=== PATIENT | female | born 1950 | race African-American/Black ===

== ENCOUNTER 2017-05-17 13:00 | Inpatient (IN) | payer MEDICARE, OTHER ==
[~2017-05-17] VITALS: Ht 166.4 cm; Wt 98.9 kg
[2017-05-17] MEDS ORDERED: LIRA0.6P2 SQ (13:17)
[2017-05-17] MEDS ORDERED: POTA10TA11 PO (13:17)
[2017-05-17] MEDS ORDERED: THEO200T17 PO (13:17)
[2017-05-17] MEDS ORDERED: CODE60TA PO (13:17)
[2017-05-17] MEDS ORDERED: LOSA25TA12 PO (13:17)
[2017-05-17] MEDS ORDERED: METF500T4 PO (13:17)
[2017-05-17] MEDS ORDERED: AMLO2.5T45 PO (13:17)
[2017-05-17] MEDS ORDERED: SERT25TA74 PO (13:17)
[2017-05-17] MEDS ORDERED: DAPA10TA PO (13:17)
[2017-05-17 17:02] LABS: BASOPHILS % 1.6 % (0.0-2.0); HEMATOCRIT. 38.2 % (36.0-48.0); HEMOGLOBIN. 12.7 g/dL (12.0-16.0); LYMPHOCYTES % 30.8 % (20.0-50.0); MEAN CORPUSCULAR HEMOGLOBIN 25.9 pg (28.0-32.0); MONOCYTES % 5.8 % (2.0-8.0); NEUTROPHILS % 57.8 % (40.0-76.0); PLATELET 364 x1000/uL (130-400); RED BLOOD CELL COUNT 4.89 mill/uL (4.2-5.4); RED CELL DISTRIBUTION WIDTH 18.7 % (11.6-14.6)
[2017-05-17 17:05] LABS: CHLORIDE 105 mEq/L (98-107)
[2017-05-17 17:06] LABS: INR 1.1; PARTIAL THROMBOPLASTIN TIME 25.8 sec (23.4-31.0); PROTHROMBIN TIME 11.6 sec (9.4-11.6)
[2017-05-17 17:15] LABS: CARBON DIOXIDE 29 mEq/L (21-32); TROPONIN I < 0.02 ng/mL (0.00-0.04)
[2017-05-17 17:16] LABS: CREATINE KINASE MB FRACTION 0.5 ng/mL (0.5-3.6)
[2017-05-17] MEDS ORDERED: ENALAPRIL 2.5MG/2ML VIAL 2ML IV ONE (18:00)
[2017-05-17 23:05] VITALS: BP 136/76
[2017-05-17 23:30] VITALS: BP 136/76
[2017-05-18] MEDS ORDERED: INS7030 SUBCUT (00:39)
[2017-05-18] MEDS ORDERED: CLONIDINE 0.1MG TABLET PO PRN (01:15)
[2017-05-18] MEDS ORDERED: NON FORMULARY PATIENT HOME MED EA XX SCH ×2 (01:45)
[2017-05-18 03:23] LABS: CREATINE KINASE 52 IU/L (26-192); CREATINE KINASE MB FRACTION 0.6 ng/mL (0.5-3.6); TROPONIN I < 0.02 ng/mL (0.00-0.04)
[2017-05-18 04:00] VITALS: BP 148/70
[2017-05-18 06:23] LABS: BASOPHILS % 0.4 % (0.0-2.0); EOSINOPHILS % 5.2 % (0.0-5.0); HEMATOCRIT. 34.2 % (36.0-48.0); HEMOGLOBIN. 11.3 g/dL (12.0-16.0); LYMPHOCYTES % 33.4 % (20.0-50.0); MEAN CORPUSCULAR HEMOGLOBIN 25.8 pg (28.0-32.0); MEAN PLATELET VOLUME 8.3 fl (7.4-10.4); PLATELET 316 x1000/uL (130-400); RED BLOOD CELL COUNT 4.38 mill/uL (4.2-5.4); RED CELL DISTRIBUTION WIDTH 18.5 % (11.6-14.6)
[2017-05-18 06:26] LABS: CARBON DIOXIDE 29 mEq/L (21-32); CHLORIDE 108 mEq/L (98-107)
[2017-05-18] MEDS: THEOPHYLLINE ANHYDROUS 80 MG/15 ML 120ML PO SCH ×3 (06:28→18:10)
[2017-05-18 08:00] VITALS: BP_SYST 156; BP_SYST 162; BP_SYST 166; BP_DIAS 73; BP_DIAS 78; BP_DIAS 81
[2017-05-18] MEDS: METFORMIN HCL 500MG TABLET PO SCH ×2 (08:32→18:13)
[2017-05-18] MEDS: POTASSIUM CHLORIDE 10MEQ TABLET SR PO SCH (08:32)
[2017-05-18] MEDS: LOSARTAN POTASSIUM 25 MG TABLET PO SCH (08:33)
[2017-05-18] MEDS: SERTRALINE HCL 25MG TABLET PO SCH (08:33)
[2017-05-18] MEDS: ENOXAPARIN 30MG/0.3ML SYR SUBCUT SCH ×2 (08:33→21:05)
[2017-05-18] MEDS: INS NPH/REG HM 70-30 100 UNITS/ML 10ML VIAL (HUMULIN 70-30) SUBCUT SCH ×3 (08:38→18:11)
[2017-05-18] MEDS ORDERED: AMLODIPINE 2.5MG TABLET PO SCH (09:00)
[2017-05-18 09:35] VITALS: BP 149/80
[2017-05-18 10:58] LABS: CREATINE KINASE 52 IU/L (26-192); CREATINE KINASE MB FRACTION < 0.5 ng/mL (0.5-3.6); TROPONIN I < 0.02 ng/mL (0.00-0.04)
[2017-05-18 12:00] VITALS: BP 134/57
[2017-05-18 16:03] VITALS: BP 152/71
[2017-05-18 20:00] VITALS: BP_SYST 143; BP_SYST 145; BP_SYST 153; BP_DIAS 70; BP_DIAS 73; BP_DIAS 78
[2017-05-19] VITALS: BP 152/60
[2017-05-19 04:00] VITALS: BP 137/82
[2017-05-19] MEDS: THEOPHYLLINE ANHYDROUS 80 MG/15 ML 120ML PO SCH ×3 (06:33→12:53)
[2017-05-19 08:00] VITALS: BP 155/79
[2017-05-19] MEDS: METFORMIN HCL 500MG TABLET PO SCH (08:19)
[2017-05-19] MEDS: LOSARTAN POTASSIUM 25 MG TABLET PO SCH (08:19)
[2017-05-19] MEDS: POTASSIUM CHLORIDE 10MEQ TABLET SR PO SCH (08:19)
[2017-05-19] MEDS: SERTRALINE HCL 25MG TABLET PO SCH (08:19)
[2017-05-19] MEDS: ENOXAPARIN 30MG/0.3ML SYR SUBCUT SCH (08:20)
[2017-05-19] MEDS: INS NPH/REG HM 70-30 100 UNITS/ML 10ML VIAL (HUMULIN 70-30) SUBCUT SCH ×2 (08:24→12:52)
[2017-05-19] MEDS ORDERED: AMLODIPINE 5MG TABLET PO SCH ×2 (09:00→21:00)
[2017-05-19 12:00] VITALS: BP 148/90
[2017-05-19 15:14] VITALS: BP 145/68
[2017-05-19 16:00] VITALS: BP 141/77
[2017-05-19] MEDS ORDERED: BLOOD SUGAR DIAGNOSTIC STRIP TEST SCH (17:40)
[2017-05-19] MEDS ORDERED: LOSARTAN POTASSIUM 25 MG TABLET PO SCH (21:00)
== END 2017-05-19 17:05 | disposition home or self-care (01) | DRG 74 ==
LOC: ER 13:22 → 7WST 18:09 → ENRESERV 21:58 → 7WST 05-18 00:18
PROVIDERS: ADMIT Internal Medicine; ATTEND Internal Medicine
DX: G90.8 Other disorders of autonomic nervous system (principal); I11.9 Hypertensive heart disease without heart failure; F32.9 Major depressive disorder, single episode, unspecified; E11.9 Type 2 diabetes mellitus without complications; E66.9 Obesity, unspecified; E78.00 Pure hypercholesterolemia, unspecified; F41.9 Anxiety disorder, unspecified; R26.9 Unspecified abnormalities of gait and mobility; J45.909 Unspecified asthma, uncomplicated; Z79.82 Long term (current) use of aspirin; Z88.5 Allergy status to narcotic agent; Z79.84 Long term (current) use of oral hypoglycemic drugs; Z79.899 Other long term (current) drug therapy; Z68.35 Body mass index [BMI] 35.0-35.9, adult
CPT/HCPCS: 36415; 70450; 70544; 70553; 71010; 80048; 80053; 80198; 82550; 82553; 82962; 83735; 83880; 84484; 85025; 85610; 85730; 93005; 93306; 93880; 96374; 97162; 97166; 99285; J1650; J1815; J3490